=== PATIENT | female | born 1945 | race Caucasian/White ===

== ENCOUNTER 2020-01-03 15:44 | Emergency (ER) | payer OTHER ==
[~2020-01-03] VITALS: Ht 152.4 cm; Wt 78.0 kg
[2020-01-03 15:52] VITALS: Ht 152.4 cm; Wt 78.0 kg
[2020-01-03 16:47] LABS: BASOPHIL % 0.6 % (0-2); PLATELET COUNT 338 x10^3mcL (130-400); RED CELL DISTRIBUTION WIDTH 15.3 % (11.5-14.5)
[2020-01-03 17:06] LABS: CALCIUM 8.8 mg/dL (8.5-10.1); CARBON DIOXIDE 25.3 mmol/L (21-32); CHLORIDE SERUM 101 mmol/L (98-107); CREATININE SERUM 0.8 mg/dL (0.6-1.0); GLUCOSE SERUM 140 mg/dL (74-106); POTASSIUM SERUM 3.6 mmol/L (3.5-5.1); SODIUM SERUM 136 mmol/L (136-145)
[2020-01-03 17:12] LABS: ALBUMIN 3.4 g/dL (3.4-5.0); ALKALINE PHOSPHATASE 113 U/L (46-116); ALT/SGPT 10 U/L (14-59); AST/SGOT 13 U/L (15-37); BILIRUBIN TOTAL 0.4 mg/dL (0.20-1.00); CHOLESTEROL 177 mg/dL (<200); CHOLESTEROL/HDL RATIO 3.6; HDL CHOLESTEROL 49 mg/dL (40-60); LIPASE 149 IU/L (73-393); TRIGLYCERIDES 185 mg/dL (<150)
[2020-01-03 17:36] LABS: FREE T4 1.23 ng/dL (0.76-1.46); FREE THYROXINE INDEX 3.1 ug/dL (1.4-4.5); T4(THYROXINE) 9.1 ug/dL (4.7-13.3)
[2020-01-03 18:16] LABS: microscopic required? NO
[2020-01-03 18:24] LABS: UA SPECIFIC GRAVITY <=1.005 (1.005-1.035); urine erythrocyte NEGATIVE (NEGATIVE)
[2020-01-03 18:30] VITALS: BP 184/64
[2020-01-05 14:34] LABS: T3 TOTAL 1.05 ng/mL
== END 2020-01-03 18:30 | disposition home or self-care (01) ==
LOC: ED 15:44
PROVIDERS: Specialist
DX: R60.0 Localized edema (principal); D64.9 Anemia, unspecified; M79.89 Other specified soft tissue disorders; T36.1X5A Adverse effect of cephalosporins and other beta-lactam antibiotics, initial encounter; I10 Essential (primary) hypertension; M19.90 Unspecified osteoarthritis, unspecified site; E66.9 Obesity, unspecified; Y92.89 Other specified places as the place of occurrence of the external cause
CPT/HCPCS: 83880; 84439; Q0092